=== PATIENT | female | born 1955 | race Caucasian/White ===

== ENCOUNTER → 2017-03-24 | Outpatient (CLI) | payer OTHER | LOC: RAD 03:09 | DX: Z12.31 Encounter for screening mammogram for malignant neoplasm of breast (principal) ==

== ENCOUNTER → 2018-04-15 | Outpatient (CLI) | payer OTHER | LOC: RAD 09:54 | DX: Z12.31 Encounter for screening mammogram for malignant neoplasm of breast (principal) ==

== ENCOUNTER → 2019-07-15 | Outpatient (CLI) | payer OTHER | LOC: BC 07-08 10:53 | DX: Z12.31 Encounter for screening mammogram for malignant neoplasm of breast (principal) ==